=== PATIENT | male | born 1995 | race American Indian/Alaskan Native ===

== ENCOUNTER 2019-02-13 08:11 | Emergency (ER) | payer SELFPAY ==
[2019-02-13 08:17] VITALS: BP 136/80
--- NOTE | 2019-02-13 08:41 | Emergency Department Report ---
- General Chief complaint: Extremity Problem,Nontraumatic Stated complaint: L FOOT SWOLLEN Time Seen by Provider: 02/13/19 08:28 Source: patient Mode of arrival: Ambulatory Limitations: No Limitations - History of Present Illness Initial comments: Patient is a 23-year-old male presents the emergency room with complaints of an insect bite that occurred 2 days ago. He states he felt the bite to the left heel. He has associated itching. He states yesterday he noticed swelling to the left ankle. He denies any pain. Patient states he did not see what bit him. He denies any fever or drainage. He denies any allergies to medications or allergies to any insect bites that he is aware of. He states he took one antibiotic pill yesterday that someone had left over but is not sure what he took. He denies a past medical history. - Related Data Previous Rx's Medication Instructions Recorded Last Taken Type Bacitracin Zinc Oint [Antibiotic 1 applicatio TP BID #1 tube 02/13/19 Unknown Rx Oint] cephALEXin [Keflex] 500 mg PO QID 7 Days #28 capsule 02/13/19 Unknown Rx Allergies Allergy/AdvReac Type Severity Reaction Status Date / Time No Known Allergies Allergy Unverified 02/13/19 08:14 Abscess Boil HPI - HPI Chief Complaint: Extremity Problem,Nontraumatic Stated Complaint: L FOOT SWOLLEN Time Seen by Provider: 02/13/19 08:28 Home Medications: Previous Rx's Medication Instructions Recorded Last Taken Type Bacitracin Zinc Oint [Antibiotic 1 applicatio TP BID #1 tube 02/13/19 Unknown Rx Oint] cephALEXin [Keflex] 500 mg PO QID 7 Days #28 capsule 02/13/19 Unknown Rx Allergies/Adverse Reactions: Allergies Allergy/AdvReac Type Severity Reaction Status Date / Time No Known Allergies Allergy Unverified 02/13/19 08:14 ED Review of Systems ROS: Stated complaint: L FOOT SWOLLEN Other details as noted in HPI Comment: All other systems reviewed and negative ED Past Medical Hx - Past Medical History Previous Medical History?: No - Surgical History Past Surgical History?: No - Social History Smoking Status: Current Every Day Smoker Substance Use Type: None - Medications Home Medications: Home Medications Medication Instructions Recorded Confirmed Last Taken Type Bacitracin Zinc Oint [Antibiotic 1 applicatio TP BID #1 tube 02/13/19 Unknown Rx Oint] cephALEXin [Keflex] 500 mg PO QID 7 Days #28 capsule 02/13/19 Unknown Rx ED Physical Exam - General Limitations: No Limitations General appearance: alert, in no apparent distress - Head Head exam: Present: atraumatic, normocephalic - Eye Eye exam: Present: normal appearance - ENT ENT exam: Present: mucous membranes moist - Extremities Exam Extremities exam: Present: other (no TTP of the left toes, foot, or ankle, FROM of the left toes, foot and ankle without difficulty, 2+ distal pulses, sensation intact) - Neurological Exam Neurological exam: Present: alert, oriented X3 - Psychiatric Psychiatric exam: Present: normal affect, normal mood - Skin Skin exam: Present: warm, dry, other (small papule to the left medial heel, no drainage, no fluctuance, 5 cm area of surrounding edema and mildly increased warmth, faint erythema) ED Course Vital Signs 02/13/19 08:15 Temperature 98.2 F Pulse Rate 72 Respiratory 16 Rate Blood Pressure 136/80 O2 Sat by Pulse 100 Oximetry ED Medical Decision Making - Medical Decision Making Patient is a 23-year-old male presents the emergency room with complaints of an insect bite that occurred 2 days ago. He states he felt the bite to the left heel. He has associated itching. He states yesterday he noticed swelling to the left ankle. He denies any pain. Patient states he did not see what bit him. He denies any fever or drainage. He denies any allergies to medications or allergies to any insect bites that he is aware of. He states he took one antibiotic pill yesterday that someone had left over but is not sure what he took. He denies a past medical history. on exam: no TTP of the left toes, foot, or ankle, FROM of the left toes, foot and ankle without difficulty, 2+ distal pulses, sensation intact, small papule to the left medial heel, no drainage, no fluctuance, 5 cm area of surrounding edema and mildly increased warmth, faint erythema, no necrosis. appears to be an insect bite with early small area of cellulitis. will give pt bacitracin ointment and keflex. advised to use med ication as prescribed. follow up with a primary care doctor in the next 3 days for reevaluation. return to the emergency room for any new or worsening symptoms or worsening signs of infection despite antibiotic therapy. - Differential Diagnosis insect bite, cellulitis, abscess, spider bite, allergic rxn Critical care attestation.: If time is entered above; I have spent that time in minutes in the direct care of this critically ill patient, excluding procedure time. ED Disposition Clinical Impression: Insect bite Qualifiers: Encounter type: initial encounter Site of insect bite: foot Laterality: left Qualified Code(s): S90.862A - Insect bite (nonvenomous), left foot, initial encounter Cellulitis Qualifiers: Site of cellulitis: extremity Site of cellulitis of extremity: lower extremity Laterality: left Qualified Code(s): L03.116 - Cellulitis of left lower limb Disposition: - TO HOME OR SELFCARE Is pt being admited?: No Does the pt Need Aspirin: No Condition: Stable Instructions: Cellulitis (ED), Insect Bite or Sting (ED) Additional Instructions: use medication as prescribed. follow up with a primary care doctor in the next 3 days for reevaluation. return to the emergency room for any new or worsening symptoms or worsening signs of infection despite antibiotic therapy. Prescriptions: Bacitracin Zinc Oint [Antibiotic Oint] 1 applicatio TP BID #1 tube cephALEXin [Keflex] 500 mg PO QID 7 Days #28 capsule Referrals: JOSSIE UREÑA MD [Primary Care Provider] - 2-3 Days [facility] [Outside] - 2-[address] [facility] [place] [Outside] - 2-3 Days Time of Disposition: 08:44 Print Language: HAITIAN
== END 2019-02-13 08:56 | disposition home or self-care (01) ==
LOC: ED 08:11
DX: S90.862A Insect bite (nonvenomous), left foot, initial encounter (principal); L03.116 Cellulitis of left lower limb; F17.200 Nicotine dependence, unspecified, uncomplicated; Z79.899 Other long term (current) drug therapy; W57.XXXA Bitten or stung by nonvenomous insect and other nonvenomous arthropods, initial encounter; Y93.89 Activity, other specified; Y92.89 Other specified places as the place of occurrence of the external cause; Y99.8 Other external cause status
CPT/HCPCS: 99282

== ENCOUNTER 2020-08-12 21:15 | Emergency (ER) | payer SELFPAY ==
[2020-08-12 21:49] VITALS: BP 140/85
[2020-08-12] MEDS ORDERED: LIDOCAINE-MPF (1%) 10 MG/1 ML VIAL 5 ML INFILTRATI ONE (21:51)
[2020-08-12] MEDS ORDERED: AZITHROMYCIN 250 MG TAB PO ONE (21:51)
[2020-08-12] MEDS ORDERED: PHENAZOPYRIDINE 200 MG TAB PO ONE (21:52)
[2020-08-12] MEDS ORDERED: ONDANSETRON 4 MG ODT TAB PO ONE (21:52)
--- NOTE | 2020-08-12 22:12 | Emergency Department Report ---
ED Male HPI - General Chief complaint: Urogenital-Male Stated complaint: INFECTION Source: patient Mode of arrival: Ambulatory Limitations: No Limitations - History of Present Illness Initial comments: Patient is a 25-year-old -[place] male with no past medical history presents to the ED with complaint of acute onset persistent penile pain, dysuria, urinary frequency and urgency, penile discharge and nausea and vomiting for the last 12 hours. Patient states that he has had 2 episodes of nausea and vomiting and that the dysuria and the penile discharge have persisted. Patient admits to having had unprotected sexual intercourse 2 days ago. Patient denies headache, dizziness, syncope, testicular pain, hematuria, scrotal swelling and pain, abdominal pain, low back pain, fever and chills. MD Complaint: penile discharge, dysuria, other (Penile pain, nausea and vomiting) -: Sudden, hour(s) (12) Location: penis Radiation: none Severity: moderate Severity scale (0 -10): 6 Quality: aching, burning, sharp Consistency: constant Improves with: none Worsens with: urination, palpation denies other symptoms, discharge, dysuria, nausea/vomiting. denies: swelling, mass, rash, urinary retention, blood in urine, fever, incontinence, other - Related Data Sexually active: Yes (Recent unprotected sexual intercourse about 2 days ago) Previous Rx's Medication Instructions Recorded Last Taken Type Bacitracin Zinc Oint [Antibiotic 1 applicatio TP BID #1 tube 02/13/19 Unknown Rx Oint] cephALEXin [Keflex] 500 mg PO QID 7 Days #28 capsule 02/13/19 Unknown Rx Doxycycline Hyclate 100 mg PO Q12H #20 tablet. 08/12/20 Unknown Rx Ibuprofen [Motrin] 600 mg PO Q8H PRN #20 tablet 08/12/20 Unknown Rx Ondansetron [Zofran Odt] 4 mg PO Q8HR PRN #15 tab.rapdis 08/12/20 Unknown Rx Phenazopyridine [Pyridium] 200 mg PO BID #20 tab 08/12/20 Unknown Rx Allergies Allergy/AdvReac Type Severity Reaction Status Date / Time No Known Allergies Allergy Unverified 02/13/19 08:14 ED Review of Systems ROS: Stated complaint: INFECTION Other details as noted in HPI Constitutional: denies: chills, fever Eyes: denies: eye pain, eye discharge, vision change ENT: denies: ear pain, throat pain Respiratory: denies: cough, shortness of breath, wheezing Cardiovascular: denies: chest pain, palpitations Endocrine: no symptoms reported Gastrointestinal: nausea, vomiting. denies: abdominal pain, diarrhea Genitourinary: urgency, dysuria, frequency, discharge. denies: hematuria Musculoskeletal: denies: back pain, joint swelling, arthralgia Skin: denies: rash, lesions Neurological: denies: headache, weakness, paresthesias Psychiatric: denies: anxiety, depression Hematological/Lymphatic: denies: easy bleeding, easy bruising ED Past Medical Hx - Past Medical History Previous Medical History?: No - Surgical History Past Surgical History?: No - Social History Smoking Status: Never Smoker Substance Use Type: Marijuana - Medications Home Medications: Home Medications Medication Instructions Recorded Confirmed Last Taken Type Bacitracin Zinc Oint [Antibiotic 1 applicatio TP BID #1 tube 02/13/19 Unknown Rx Oint] cephALEXin [Keflex] 500 mg PO QID 7 Days #28 capsule 02/13/19 Unknown Rx Doxycycline Hyclate 100 mg PO Q12H #20 tablet.dr 08/12/20 Unknown Rx Ibuprofen [Motrin] 600 mg PO Q8H PRN #20 tablet 08/12/20 Unknown Rx Ondansetron [Zofran Odt] 4 mg PO Q8HR PRN #15 tab.rapdis 08/12/20 Unknown Rx Phenazopyridine [Pyridium] 200 mg PO BID #20 tab 08/12/20 Unknown Rx ED Physical Exam - General Limitations: No Limitations General appearance: alert, in no apparent distress - Head Head exam: Present: atraumatic, normocephalic, normal inspection - Eye Eye exam: Present: normal appearance, PERRL, EOMI Pupils: Present: normal accommodation - ENT ENT exam: Present: normal exam, normal orophraynx, mucous membranes moist, TM's normal bilaterally, normal external ear exam - Neck Neck exam: Present: normal inspection, full ROM - Respiratory Respiratory exam: Present: normal lung sounds bilaterally. Absent: respiratory distress, wheezes, rales, rhonchi, stridor, chest wall tenderness, accessory muscle use, decreased breath sounds, prolonged expiratory - Cardiovascular Cardiovascular Exam: Present: regular rate, normal rhythm, normal heart sounds. Absent: systolic murmur, diastolic murmur, rubs, gallop - GI/Abdominal GI/Abdominal exam: Present: soft, normal bowel sounds. Absent: tenderness, guarding, hyperactive bowel sounds, hypoactive bowel sounds, organomegaly - External exam: Present: other (Genital exam deferred at this time) - Extremities Exam Extremities exam: Present: normal inspection, full ROM, normal capillary refill - Back Exam Back exam: Present: normal inspection, full ROM. Absent: tenderness, CVA tenderness (R), CVA tenderness (L), muscle spasm, paraspinal tenderness, vertebral tenderness - Neurological Exam Neurological exam: Present: alert, oriented X3, CN II-XII intact, normal gait, reflexes normal - Psychiatric Psychiatric exam: Present: normal affect, normal mood - Skin Skin exam: Present: warm, dry, intact, normal color. Absent: rash ED Course Vital Signs 08/12/20 08/12/20 21:46 22:39 Temperature 98.6 F Pulse Rate 95 H 67 Respiratory 18 18 Rate Blood Pressure 140/85 O2 Sat by Pulse 99 98 Oximetry ED Medical Decision Making - Medical Decision Making This is a 25-year-old -[place] male with no past medical history presents to the ED with complaint of acute onset persistent penile pain, dys uria, urinary frequency and urgency, penile discharge and nausea and vomiting for the last 12 hours. Patient states that he has had 2 episodes of nausea and vomiting and that the dysuria and the penile discharge have persisted. Patient admits to having had unprotected sexual intercourse 2 days ago. In the ED, patient is alert and oriented x3 and is not in any distress. Patient is hemodynamically stable. Lab test results were reviewed and the patient was treated empirically for gonorrhea and chlamydia in the ED and was empirically discharged home on medications. Patient was advised to follow-up with [facility] for further STD testing including HIV and syphilis. Patient was advised to ensure that his sexual partner gets treated at the health department and that he observe safe sexual practices. Patient advised return to the ED immediately if symptoms get worse. - Differential Diagnosis STD; urethritis; UTI; kidney stones Critical care attestation.: If time is entered above; I have spent that time in minutes in the direct care of this critically ill patient, excluding procedure time. ED Disposition Clinical Impression: Urethritis, nonspecific, STD (sexually transmitted disease), Abnormal penile discharge Disposition: DC-01 TO HOME OR SELFCARE Is pt being admited?: No Does the pt Need Aspirin: No Condition: Stable Instructions: Urinary Tract Infection, Adult, Urethritis, Adult, Safe Sex, Gonorrhea Additional Instructions: Take medication with food, drink plenty of fluids and follow-up with the [facility] for further STD testing including HIV and syphilis. Ensure that your sexual partner gets treated at the [facility]. Observe safe sexual practices. Return to the ED immediately if symptoms get worse. Prescriptions: Doxycycline Hyclate 100 mg PO Q12H #20 tablet. Ibuprofen [Motrin] 600 mg PO Q8H PRN #20 tablet PRN Reason: Pain Phenazopyridine [Pyridium] 200 mg PO BID #20 tab Ondansetron [Zofran Odt] 4 mg PO Q8HR PRN #15 tab.rapdis PRN Reason: Nausea Referrals: PRIMARY CARE, [Primary Care Provider] - 3-5 Days Forms: STI Treatment and Prevention Time of Disposition: 22:12 Print Language: ETHIOPIAN
[2020-08-12 23:47] LABS: Bacteria,Urine 1+ /HPF (Negative); Bilirubin,Urine NEG (Negative); Blood,Urine NEG (Negative); Color,Urine Yellow (Yellow); Mucus,Urine FEW /HPF
[2020-08-12 23:54] LABS: WBC,Urine > 182.0 /HPF (0.0-6.0)
== END 2020-08-12 22:39 | disposition home or self-care (01) ==
LOC: ED 21:15
DX: N34.2 Other urethritis (principal); A64 Unspecified sexually transmitted disease; R36.9 Urethral discharge, unspecified; F12.10 Cannabis abuse, uncomplicated; Z79.899 Other long term (current) drug therapy
CPT/HCPCS: 81001; 87591; 96372; 99283; J0696; Q0162

== ENCOUNTER 2020-08-21 17:47 | Emergency (ER) | payer SELFPAY ==
--- NOTE | 2020-08-21 18:40 | Event Note ---
ED Screening Note ED Screening Note: RLQ abd pain that began This initial assessment/diagnostic orders/clinical plan/treatment(s) is/are subject to change based on patients health status, clinical progression and re- assessment by fellow clinical providers in the ED. Further treatment and workup at subsequent clinical providers discretion. Patient/guardian urged not to elope from the ED as their condition may be serious if not clinically assessed and managed. Initial orders include:
--- NOTE | 2020-08-21 18:51 | Emergency Department Report ---
Chief Complaint: Abdominal Pain Stated Complaint: LOW ABD PAIN Time Seen by Provider: 08/21/20 18:39 - HPI History of Present Illness: pt is a 25 yo male who presents to the ED for a recheck. he was evaluated in the ED on 08/12/2020 for penile discharge and abd pain. UA showed many WBCs. he was empirically treated for G/C appropriately. he states he returns today because he still noticed a small amount of discharge and has occasional right groin pain. he denies any fever, n/v/d, abd pain, swelling in the testicles. he states he had surgery at 14 yo for a hernia. 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 Patient's testing from 08/12/2019 came back with positive for gonorrhea and chlamydia He was treated for the gonorrhea with ceftriaxone while in the emergency department He was given a 10-day course of doxycycline for the chlamydia He was already appropriately treated He has no clinical signs of orchitis or epididymitis No clinical signs of torsion Patient will be referred to a clinic and health department in order to receive a full STD panel Patient was given reassurance Patient referred to urology due to previous hernia, no signs of hernia at this time Discussed return precautions Medical screen examination performed there is no threat to life or limb at this time MSE screening note: Focused history and physical exam performed. Due to findings the following was ordered: ED Disposition for MSE Clinical Impression: Gonorrhea, Chlamydia Groin pain Qualifiers: Laterality: right Qualified Code(s): R10.31 - Right lower quadrant pain Disposition: Z-07 MED SCREENING EXAM-LEFT Is pt being admited?: No Does the pt Need Aspirin: No Condition: Stable Instructions: Chlamydia, Male, Safe Sex, Gonorrhea Additional Instructions: please complete your course of antibiotics. follow up with the health department or a clinic for a full STD panel. have any partner tested and treated as well. avoid sexual intercourse. follow up with a urologist. return to the emergency room for any new or worsening symptoms. Referrals: [facility] [Outside] - 3-5 Days BETTY PARKER MD [Staff Physician] - 3-5 Days Time of Disposition: 18:50 Print Language: TAJIK
[2020-08-21 18:55] VITALS: BP 140/74
== END 2020-08-21 19:06 | disposition left against medical advice (07) ==
LOC: ED 17:47
DX: R10.30 Lower abdominal pain, unspecified (principal); Z53.21 Procedure and treatment not carried out due to patient leaving prior to being seen by health care provider

== ENCOUNTER 2020-09-15 09:31 | Emergency (ER) | payer SELFPAY ==
[2020-09-15 09:53] VITALS: BP 146/93
--- NOTE | 2020-09-15 10:54 | Emergency Department Report ---
<TRICIA RODRIGUEZ - Last Filed: 09/15/20 13:53> ED General Adult HPI - General Chief complaint: Urogenital-Male Stated complaint: LT SIDE PAIN/GROIN PAIN Time Seen by Provider: 09/15/20 10:41 Source: patient Mode of arrival: Ambulatory Limitations: No Limitations - History of Present Illness Initial comments: 25-year-old male presents to the ER today with complaints of left-sided abdominal pain, left-sided testicular pain and dysuria. Patient states his symptoms started yesterday. Patient states that when his left testicle starts to hurt causes pain into his left abdomen. He states that he started having dysuria today. Denies any associated testicular swelling. Denies penile discharge or hematuria. He denies nausea, vomiting, diarrhea or constipation. 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 He also reports that he was treated for chlamydia a few week s ago. He states that he completed all antibiotics. He states that his significant other was tested and she was negative for anything. He denies any new sexual partners recently. MD Complaint: Left sided Abdominal pain/Left testicular pain/dysuria -: Gradual (Yesterday) - Related Data Previous Rx's Medication Instructions Recorded Last Taken Type Bacitracin Zinc Oint [Antibiotic 1 applicatio TP BID #1 tube 02/13/19 Unknown Rx Oint] cephALEXin [Keflex] 500 mg PO QID 7 Days #28 capsule 02/13/19 Unknown Rx Ibuprofen [Motrin] 600 mg PO Q8H PRN #20 tablet 08/12/20 Unknown Rx Ondansetron [Zofran Odt] 4 mg PO Q8HR PRN #15 tab.rapdis 08/12/20 Unknown Rx Phenazopyridine [Pyridium] 200 mg PO BID #20 tab 08/12/20 Unknown Rx Doxycycline Hyclate 100 mg PO Q12H #20 tablet. 09/15/20 Unknown Rx Allergies Allergy/AdvReac Type Severity Reaction Status Date / Time No Known Allergies Allergy Verified 09/15/20 09:51 ED Review of Systems Comment: All other systems reviewed and negative Constitutional: denies: chills, fever Eyes: denies: eye pain, eye discharge, vision change ENT: denies: ear pain, throat pain Respiratory: denies: cough, shortness of breath, SOB with exertion, SOB at rest, wheezing Cardiovascular: denies: chest pain, palpitations Gastrointestinal: denies: abdominal pain, nausea, diarrhea Genitourinary: dysuria, testicular pain. denies: urgency, frequency, hematuria, discharge, testicular mass Musculoskeletal: denies: back pain, joint swelling, arthralgia Skin: denies: rash, lesions Neurological: denies: headache, weakness, paresthesias Psychiatric: denies: anxiety, depression Hematological/Lymphatic: denies: easy bleeding, easy bruising ED Past Medical Hx - Surgical History Additional Surgical History: HERNIA - Social History Smoking Status: Current Every Day Smoker Substance Use Type: None - Medications Home Medications: Home Medications Medication Instructions Recorded Confirmed Last Taken Type Bacitracin Zinc Oint [Antibiotic 1 applicatio TP BID #1 tube 02/13/19 Unknown Rx Oint] cephALEXin [Keflex] 500 mg PO QID 7 Days #28 capsule 02/13/19 Unknown Rx Ibuprofen [Motrin] 600 mg PO Q8H PRN #20 tablet 08/12/20 Unknown Rx Ondansetron [Zofran Odt] 4 mg PO Q8HR PRN #15 tab.rapdis 08/12/20 Unknown Rx Phenazopyridine [Pyridium] 200 mg PO BID #20 tab 08/12/20 Unknown Rx Doxycycline Hyclate 100 mg PO Q12H #20 tablet.dr 09/15/20 Unknown Rx ED Physical Exam - General Limitations: No Limitations General appearance: alert, in no apparent distress - Head Head exam: Present: atraumatic, normocephalic, normal inspection - Eye Eye exam: Present: normal appearance, PERRL, EOMI Pupils: Present: normal accommodation - Respiratory Respiratory exam: Present: normal lung sounds bilaterally. Absent: respiratory distress - Cardiovascular Cardiovascular Exam: Present: regular rate - GI/Abdominal GI/Abdominal exam: Present: soft. Absent: distended, tenderness, guarding, rebound - exam: Present: testicular tenderness (mild ttp left testicule ). Absent: urethral discharge External exam: Present: normal external exam - Extremities Exam Extremities exam: Present: normal inspection - Neurological Exam Neurological exam: Present: alert, oriented X3, CN II-XII intact, normal gait - Psychiatric Psychiatric exam: Present: normal affect, normal mood - Skin Skin exam: Present: intact ED Medical Decision Making - Medical Decision Making 25-year-old male presents to the ER today with complaints of left-sided abdominal pain, left-sided testicular pain and dysuria. Patient states his symptoms started yesterday. Patient states that when his left testicle starts to hurt causes pain into his left abdomen. He states that he started having dysuria today. Denies any associated testicular swelling. Denies penile discharge or hematuria. He denies nausea, vomiting, diarrhea or constipation. 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 He also reports that he was treated for chlamydia a few weeks ago. He states that he completed all antibiotics. He states that his significant other was tested and she was negative for anything. He denies any new sexual partners recently. 1353: UA does not suggest UTI.. Ultrasound shows nothing acute. Patient currently resting comfortably. He has been observed playing on his phone throughout the stay. He is well-appearing, nontoxic, does not appear to be in any acute distress. He is neurologically intact with a normal gait in the ER. He has a soft nontender abdominal exam. His vital signs have been stable. No indication for additional work-up at this time. Discussed ultrasound results and urinalysis results with patient. Patient for treated prophylactically for gonorrhea and chlamydia. Patient informed that his partner should also get treated since he is getting treated. Also recommend that he follows up with the primary care doctor listed on his discharge instructions. He expressed understanding of instructions and agree with plan. Patient was stable at time of discharge. ED Disposition Clinical Impression: Testicular discomfort, Urethritis Disposition: - TO HOME OR SELFCARE Is pt being admited?: No Does the pt Need Aspirin: No Condition: Stable Additional Instructions: Take the doxycycline as prescribed. You can take Tylenol and or ibuprofen for pain. Follow-up with the primary care doctor listed on your discharge instruction. Recommend no sexual contact for 1 week. Your partner should also be tested and treated since you are being tested and treated today. Return to the ER if your symptoms changes or worsens in any way. Prescriptions: Doxycycline Hyclate 100 mg PO Q12H #20 tablet. Referrals: SAVANNAH MAYBERRY MD [Staff Physician] - 3-5 Days Forms: STI Treatment and Prevention, Work/School Release Form(ED) Time of Disposition: 13:41 <JR ALY - Last Filed: 03/04/21 15:41> ED Review of Systems ROS: Stated complaint: LT SIDE PAIN/GROIN PAIN Other details as noted in HPI ED Course Vital Signs 09/15/20 09:52 Temperature 97.5 F L Pulse Rate 90 Respiratory 20 Rate Blood Pressure 146/93 O2 Sat by Pulse 100 Oximetry Critical care attestation.: If time is entered above; I have spent that time in minutes in the direct care of this critically ill patient, excluding procedure time. ED Disposition Is pt being admited?: No Does the pt Need Aspirin: No
[2020-09-15] MEDS ORDERED: LIDOCAINE-MPF (1%) 10 MG/1 ML VIAL 5 ML INFILTRATI ONE (10:55)
[2020-09-15 11:40] LABS: Bilirubin,Urine NEG (Negative); Blood,Urine NEG (Negative); Color,Urine Straw (Yellow); Mucus,Urine FEW /HPF; Protein,Urine <15 mg/dL mg/dL (Negative); Urobilinogen,Urine < 2.0 mg/dL (<2.0)
--- NOTE | 2020-09-15 13:29 | Ultrasound Report ---
ULTRASOUND SCROTUM INDICATION / CLINICAL INFORMATION: Left testicular pain/hx of torsion as teenager. COMPARISON: Ultrasound dated 09/26/10 FINDINGS -- RIGHT: Surgically absent. FINDINGS -- LEFT: TESTIS: Size = 4.2 x 2.3 x 3.7 cm. - Appearance: No significant abnormality. - Cyst / Mass: None. - Color Doppler Flow: No significant abnormality. EPIDIDYMIS: No significant abnormality. HYDROCELE: None. VARICOCELE: None demonstrated. ADDITIONAL FINDINGS: None. IMPRESSION: 1. No sonographic abnormality of the left testis. No sonographic evidence for testicular torsion. 2. Right orchiectomy. Signer Name: Christiana Glass MD Signed: 09/15/2020 1:24 PM Workstation Name: [id number]
== END 2020-09-15 14:00 | disposition home or self-care (01) ==
LOC: ED 09:31
DX: N50.812 Left testicular pain (principal); N34.2 Other urethritis; F17.200 Nicotine dependence, unspecified, uncomplicated; Z79.1 Long term (current) use of non-steroidal anti-inflammatories (NSAID); Z79.899 Other long term (current) drug therapy
CPT/HCPCS: 81001; 93975; 96372; 99283; J0696

== ENCOUNTER 2021-01-15 08:23 | Emergency (ER) | payer SELFPAY ==
[2021-01-15 08:34] VITALS: BP 123/83
--- NOTE | 2021-01-15 09:54 | Emergency Department Report ---
- General Chief complaint: Skin/Abscess/Foreign Body Stated complaint: PT STATES HE THINKS HE HAS A HERNIA Time Seen by Provider: 01/15/21 09:34 Source: patient Mode of arrival: Ambulatory Limitations: No Limitations - History of Present Illness Initial comments: 25-year-old -[place] male presents to the emergency room complaining of a bump under his testicle area for the last 3 days. Patient states he took some antibiotics that was pink with a #67 on it took 1 pill on Saturday 1 pill on Saturday that was left over from the sister. Patient states that he had a little bit of tingling after he voids. Patient denies any recent unprotected intercourse. Patient denies any penile discharge no testicular pain or swelling. Patient denies any fever chills no abdominal pain. MD complaint: lesion Onset/Timin -: days(s) Tetanus Up to Date: yes Location: genitals Severity scale (0 -10): 2 Improves with: none Worsens with: none Context: none Associated symptoms: denies other symptoms - Related Data Previous Rx's Medication Instructions Recorded Last Taken Type Bacitracin Zinc Oint [Antibiotic 1 applicatio TP BID #1 tube 02/13/19 Unknown Rx Oint] cephALEXin [Keflex] 500 mg PO QID 7 Days #28 capsule 02/13/19 Unknown Rx Ibuprofen [Motrin] 600 mg PO Q8H PRN #20 tablet 08/12/20 Unknown Rx Ondansetron [Zofran Odt] 4 mg PO Q8HR PRN #15 tab.rapdis 08/12/20 Unknown Rx Phenazopyridine [Pyridium] 200 mg PO BID #20 tab 08/12/20 Unknown Rx Doxycycline Hyclate 100 mg PO Q12H #20 tablet. 09/15/20 Unknown Rx Allergies Allergy/AdvReac Type Severity Reaction Status Date / Time No Known Allergies Allergy Verified 09/15/20 09:51 Abscess Boil HPI - HPI Chief Complaint: Skin/Abscess/Foreign Body Stated Complaint: PT STATES HE THINKS HE HAS A HERNIA Time Seen by Provider: 01/15/21 09:34 Home Medications: Previous Rx's Medication Instructions Recorded Last Taken Type Bacitracin Zinc Oint [Antibiotic 1 applicatio TP BID #1 tube 02/13/19 Unknown Rx Oint] cephALEXin [Keflex] 500 mg PO QID 7 Days #28 capsule 02/13/19 Unknown Rx Ibuprofen [Motrin] 600 mg PO Q8H PRN #20 tablet 08/12/20 Unknown Rx Ondansetron [Zofran Odt] 4 mg PO Q8HR PRN #15 tab.rapdis 08/12/20 Unknown Rx Phenazopyridine [Pyridium] 200 mg PO BID #20 tab 08/12/20 Unknown Rx Doxycycline Hyclate 100 mg PO Q12H #20 tablet. 09/15/20 Unknown Rx Allergies/Adverse Reactions: Allergies Allergy/AdvReac Type Severity Reaction Status Date / Time No Known Allergies Allergy Verified 09/15/20 09:51 ED Review of Systems ROS: Stated complaint: PT STATES HE THINKS HE HAS A HERNIA Other details as noted in HPI Comment: All other systems reviewed and negative ED Past Medical Hx - Past Medical History Previous Medical History?: No - Surgical History Past Surgical History?: Yes Additional Surgical History: HERNIA - Social History Smoking Status: Current Every Day Smoker Substance Use Type: Marijuana - Medications Home Medications: Home Medications Medication Instructions Recorded Confirmed Last Taken Type Bacitracin Zinc Oint [Antibiotic 1 applicatio TP BID #1 tube 02/13/19 Unknown Rx Oint] cephALEXin [Keflex] 500 mg PO QID 7 Days #28 capsule 02/13/19 Unknown Rx Ibuprofen [Motrin] 600 mg PO Q8H PRN #20 tablet 08/12/20 Unknown Rx Ondansetron [Zofran Odt] 4 mg PO Q8HR PRN #15 tab.rapdis 08/12/20 Unknown Rx Phenazopyridine [Pyridium] 200 mg PO BID #20 tab 08/12/20 Unknown Rx Doxycycline Hyclate 100 mg PO Q12H #20 tablet. 09/15/20 Unknown Rx ED Physical Exam - General Limitations: No Limitations General appearance: alert, in no apparent distress - Head Head exam: Present: atraumatic, normocephalic - Eye Eye exam: Present: normal appearance - ENT ENT exam: Present: normal external ear exam - Neck Neck exam: Present: normal inspection - Respiratory Respiratory exam: Absent: respiratory distress - exam: Present: other. Absent: testicular tenderness, scrotal swelling External exam: Present: other (Piece size bump in the perineum between the testicles and the rectum that is nontender to touch.) - Extremities Exam Extremities exam: Present: normal inspection - Back Exam Back exam: Present: normal inspection - Neurological Exam Neurological exam: Present: alert, oriented X3, normal gait - Psychiatric Psychiatric exam: Present: normal affect, normal mood ED Course Vital Signs 01/15/21 01/15/21 08:31 10:08 Temperature 97.9 F Pulse Rate 76 76 Respiratory 20 20 Rate Blood Pressure 123/83 O2 Sat by Pulse 100 100 Oximetry ED Medical Decision Making - Medical Decision Making 25-year-old -[place] male presents to the emergency room complaining of a bump under his testicle area for the last 3 days. Patient states he took some antibiotics that was pink with a #67 on it took 1 pill on Saturday 1 pill on Saturday that was left over from the sister. Patient states that he had a little bit of tingling after he voids. Patient denies any recent unprotected intercourse. Patient denies any penile discharge no testicular pain or swelling. Patient denies any fever chills no abdominal pain. Discussed with patient he can follow-up with a primary care provider or urologist. Patient has stable vital signs lump is mobile nontender. Not concerned for a boil or an abscess. Critical care attestation.: If time is entered above; I have spent that time in minutes in the direct care of this critically ill patient, excluding procedure time. ED Disposition Clinical Impression: Testicular lump Disposition: - TO HOME OR SELFCARE Is pt being admited?: No Does the pt Need Aspirin: No Condition: Stable Additional Instructions: Important to follow-up with a urologist or primary care provider in the next week or 2. Tylenol or ibuprofen as needed for any discomfort. Referrals: BETTY PARKER MD [Staff Physician] - 3-5 Days Forms: Work/School Release Form(ED)
== END 2021-01-15 10:08 | disposition home or self-care (01) ==
LOC: ED 08:23
DX: N44.2 Benign cyst of testis (principal); F17.200 Nicotine dependence, unspecified, uncomplicated; F12.90 Cannabis use, unspecified, uncomplicated; Z98.890 Other specified postprocedural states; Z79.899 Other long term (current) drug therapy
CPT/HCPCS: 99282

== ENCOUNTER 2021-01-28 16:53 | Emergency (ER) | payer SELFPAY ==
--- NOTE | 2021-01-28 17:42 | Emergency Department Report ---
Chief Complaint: Skin/Abscess/Foreign Body Stated Complaint: BURNING W/URINATION Time Seen by Provider: 01/28/21 17:35 - HPI History of Present Illness: Patient is a 25-year-old male presents emergency room complaints of dysuria that began 2 days ago. He denies any fever, nausea, vomiting, diarrhea, abdominal pain, pain or swelling the testicles, hematuria, urinary retention. Patient states he was sexually active without protection a month ago. Patient states he was seen in the emergency department for a lump a couple weeks ago but he states that it completely resolved and he is just here due to dysuria. No past medical history. No allergies to medications. 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 Please have any partner tested and treated as well. Avoid sexual intercourse. Follow-up with your primary care doctor. Return to emergency room for new or worse symptoms. medical screening examination performed and there is no threat to life or limb at this time - Exam Vital Signs: Vital Signs 01/28/21 01/28/21 01/28/21 16:59 17:37 17:40 Temperature 98.4 F 98.7 F Pulse Rate 77 81 79 Respiratory 20 19 16 Rate Blood Pressure 133/66 Blood Pressure 133/66 134/74 133/79 [Left] O2 Sat by Pulse 95 100 99 Oximetry MSE screening note: Focused history and physical exam performed. Due to findings the following was ordered: ED Disposition for MSE Clinical Impression: Dysuria, Concern about STD in male without diagnosis Disposition: DC-01 TO HOME OR SELFCARE Is pt being admited?: No Does the pt Need Aspirin: No Condition: Stable Instructions: Safe Sex Additional Instructions: Please follow-up with the clinic or the health department or to receive a full STD panel. Please have any partner tested and treated as well. Avoid sexual intercourse. Follow-up with your primary care doctor. Return to emergency room for new or worse symptoms. walk in clinic for STD testing: [facility] Address: [address] [place] [id number] Referrals: PRIMARY CAREMD [Primary Care Provider] - 3-5 Days [facility] [Outside] - 3-5 Days Time of Disposition: 17:43 Print Language: YORUBA
[2021-01-28 17:44] VITALS: BP 133/79
== END 2021-01-28 17:55 | disposition home or self-care (01) ==
LOC: ED 16:53
DX: R30.0 Dysuria (principal); Z20.2 Contact with and (suspected) exposure to infections with a predominantly sexual mode of transmission
CPT/HCPCS: 99282

== ENCOUNTER → 2021-08-01 | Emergency (ER) | payer SELFPAY ==
[2021-08-01 12:54] VITALS: BP 142/82
== END ==
LOC: ED 12:43
DX: R36.9 Urethral discharge, unspecified (principal); R22.1 Localized swelling, mass and lump, neck; Z53.21 Procedure and treatment not carried out due to patient leaving prior to being seen by health care provider

== ENCOUNTER 2021-12-19 02:39 | Emergency (ER) | payer SELFPAY ==
--- NOTE | 2021-12-19 10:04 | Emergency Department Report ---
- General Chief complaint: GI Bleed Stated complaint: BLOODY STOOLS Time Seen by Provider: 12/19/21 09:27 Source: patient Mode of arrival: Ambulatory Limitations: No Limitations - History of Present Illness Initial comments: Patient is a 26-year-old male comes to the emergency room department after having blood in the toilet this morning. He said he woke up at midnight and was having a bowel movement and noticed blood. It was bright red. Patient denies any abdominal pain. He denies rectal pain. He denies having anal sex. He denies constipation. He states that he lifts a lot at work. Patient has no fever or chills. Patient has no dysuria MD complaint: other -: Sudden Tetanus Up to Date: yes Improves with: none Worsens with: none Context: none Associated symptoms: denies other symptoms Treatments Prior to Arrival: none - Related Data Previous Rx's Medication Instructions Recorded Last Taken Type Bacitracin Zinc Oint [Antibiotic 1 applicatio TP BID #1 tube 02/13/19 Unknown Rx Oint] cephALEXin [Keflex] 500 mg PO QID 7 Days #28 capsule 02/13/19 Unknown Rx Ibuprofen [Motrin] 600 mg PO Q8H PRN #20 tablet 08/12/20 Unknown Rx Ondansetron [Zofran Odt] 4 mg PO Q8HR PRN #15 tab.rapdis 08/12/20 Unknown Rx Phenazopyridine [Pyridium] 200 mg PO BID #20 tab 08/12/20 Unknown Rx Doxycycline Hyclate 100 mg PO Q12H #20 tablet.dr 09/15/20 Unknown Rx bisacodyL [Dulcolax suppos] [address] QDAY PRN #10 supp.rect 12/19/21 Unknown Rx Allergies Allergy/AdvReac Type Severity Reaction Status Date / Time No Known Allergies Allergy Verified 09/15/20 09:51 Abscess Boil HPI - HPI Chief Complaint: GI Bleed Stated Complaint: BLOODY STOOLS Time Seen by Provider: 12/19/21 09:27 Home Medications: Previous Rx's Medication Instructions Recorded Last Taken Type Bacitracin Zinc Oint [Antibiotic 1 applicatio TP BID #1 tube 02/13/19 Unknown Rx Oint] cephALEXin [Keflex] 500 mg PO QID 7 Days #28 capsule 02/13/19 Unknown Rx Ibuprofen [Motrin] 600 mg PO Q8H PRN #20 tablet 08/12/20 Unknown Rx Ondansetron [Zofran Odt] 4 mg PO Q8HR PRN #15 tab.rapdis 08/12/20 Unknown Rx Phenazopyridine [Pyridium] 200 mg PO BID #20 tab 08/12/20 Unknown Rx Doxycycline Hyclate 100 mg PO Q12H #20 tablet. 09/15/20 Unknown Rx bisacodyL [Dulcolax suppos] [address] QDAY PRN #10 supp.rect 12/19/21 Unknown Rx Allergies/Adverse Reactions: Allergies Allergy/AdvReac Type Severity Reaction Status Date / Time No Known Allergies Allergy Verified 09/15/20 09:51 ED Review of Systems ROS: Stated complaint: BLOODY STOOLS Other details as noted in HPI Comment: All other systems reviewed and negative ED Past Medical Hx - Past Medical History Previous Medical History?: No - Surgical History Past Surgical History?: Yes Additional Surgical History: HERNIA - Family History Family history: no significant - Social History Smoking Status: Current Every Day Smoker Substance Use Type: Marijuana - Medications Home Medications: Home Medications Medication Instructions Recorded Confirmed Last Taken Type Bacitracin Zinc Oint [Antibiotic 1 applicatio TP BID #1 tube 02/13/19 Unknown Rx Oint] cephALEXin [Keflex] 500 mg PO QID 7 Days #28 capsule 02/13/19 Unknown Rx Ibuprofen [Motrin] 600 mg PO Q8H PRN #20 tablet 08/12/20 Unknown Rx Ondansetron [Zofran Odt] 4 mg PO Q8HR PRN #15 tab.rapdis 08/12/20 Unknown Rx Phenazopyridine [Pyridium] 200 mg PO BID #20 tab 08/12/20 Unknown Rx Doxycycline Hyclate 100 mg PO Q12H #20 tablet. 09/15/20 Unknown Rx bisacodyL [Dulcolax suppos] [address] QDAY PRN #10 supp.rect 12/19/21 Unknown Rx ED Physical Exam - General Limitations: No Limitations General appearance: alert, in no apparent distress - Head Head exam: Present: atraumatic, normocephalic - Eye Eye exam: Present: normal appearance - ENT ENT exam: Present: mucous membranes moist - Neck Neck exam: Present: normal inspection - Respiratory Respiratory exam: Present: normal lung sounds bilaterally. Absent: respiratory distress - Cardiovascular Cardiovascular Exam: Present: regular rate, normal rhythm. Absent: systolic murmur, diastolic murmur, rubs, gallop - GI/Abdominal GI/Abdominal exam: Present: soft, normal bowel sounds - Rectal Rectal exam: Present: deferred - Extremities Exam Extremities exam: Present: normal inspection - Back Exam Back exam: Present: normal inspection - Neurological Exam Neurological exam: Present: alert, oriented X3 - Psychiatric Psychiatric exam: Present: normal affect, normal mood - Skin Skin exam: Present: warm, dry, intact, normal color. Absent: rash ED Course Vital Signs 12/19/21 12/19/21 08:20 10:27 Temperature 98.1 F Pulse Rate 55 L 74 Respiratory 16 16 Rate Blood Pressure 121/82 126/74 [Left] O2 Sat by Pulse 100 100 Oximetry ED Medical Decision Making - Medical Decision Making Vital Signs 12/19/21 12/19/21 08:20 10:27 Temperature 98.1 F Pulse Rate 55 L 74 Respiratory 16 16 Rate Blood Pressure 121/82 126/74 [Left] O2 Sat by Pulse 100 100 Oximetry Hemorrhoids noted on exam. Patient educated on how hemorrhoids form and how to treat them. Patient is ambulatory, nontoxic [id number]. He has normal vital signs. Patient being discharged home with discharge plan of care including diet, activity, medications and follow-up. He verbalizes understanding of discharge charge plan of care. - Differential Diagnosis Hemorrhoids Critical care attestation.: If time is entered above; I have spent that time in minutes in the direct care of this critically ill patient, excluding procedure time. ED Disposition Clinical Impression: Hemorrhoid Qualifiers: Hemorrhoid type: other Qualified Code(s): K64.8 - Other hemorrhoids Disposition: 01 HOME / SELF CARE / HOMELESS Is pt being admited?: No Does the pt Need Aspirin: No Condition: Stable Instructions: Hemorrhoids, [id number] Additional Instructions: Stay well-hydrated with water suppository as we discussed High-fiber diet Avoid fried food and fast food Follow-up with PCP if this persist referral below Prescriptions: bisacodyL [Dulcolax suppos] [address] QDAY PRN #10 supp.rect PRN Reason: Hemorrhoids Referrals: SAVANNAH MAYBERRY MD [Primary Care Provider] - 3-5 Days Forms: Work/School Release Form(ED) Time of Disposition: 10:03
[2021-12-19 10:28] VITALS: BP 126/74
== END 2021-12-19 10:27 | disposition home or self-care (01) ==
LOC: ED 02:39
DX: K64.9 Unspecified hemorrhoids (principal); Z98.890 Other specified postprocedural states; F17.290 Nicotine dependence, other tobacco product, uncomplicated
CPT/HCPCS: 99282